=== PATIENT | male | born 1985 | race Hispanic/Latino ===

== ENCOUNTER 2017-09-24 05:25 | Emergency (ER) | payer SELFPAY ==
[2017-09-24 05:59] LABS: Absolute Lymphocytes (CBC) 4.2 K/uL (0.7-4.9); Absolute Monocytes 0.5 K/uL (0.1-1.3); Absolute Neutrophil 6.4 K/uL (1.8-8.0); Basophils % 1.1 % (0-1.3); Eosinophils % 3.1 % (0-4.4); MCV 83.5 fL (80-100); MPV 8.2 fL (7.6-11.3); Monocytes % 4.7 % (3.3-12.3); RBC Red Blood Cell Count 6.11 M/uL (4.33-5.43)
[2017-09-24] MEDS ORDERED: HYDRALAZINE HCL 20 MG/ML VIAL ONE (06:02)
[2017-09-24 06:09] LABS: Protime INR 1.17
[2017-09-24 06:11] LABS: Bicarbonate 24 mEq/L (21-31); Glucose Level 109 mg/dL (65-120); Sodium Level 137 mEq/L (135-145)
[2017-09-24 06:17] LABS: ALT/SGPT 158 IU/L (10-60); AST/SGOT 94 IU/L (10-42); Albumin 4.9 g/dL (3.2-5.5); Alkaline Phosphatase 72 IU/L (42-121); BUN Blood Urea Nitrogen 14 mg/dL (6-20); Bilirubin Direct 0.1 mg/dL (0-0.2); Creatine Phosphokinase 90 IU/L (22-269); Magnesium 2.3 mg/dL (1.8-2.5); Protein, Total 8.7 g/dL (6.0-8.3)
[2017-09-24 06:19] LABS: CKMB Creatine Kinase MB 0.7 ng/ml (0.3-4.0)
--- NOTE | 2017-09-24 07:15 | EDPHYS ---
Physician Documentation [facility] Name: Marko Vick Age: 31 yrs Sex: Male : 1985 Arrival Date: 09/24/2017 Time: 05:27 Bed 16 Private MD: ED Physician Dashawn Butts Historical: - Allergies: 09/24 05:44 No Known Allergies; fc - Home Meds: 05:44 lisinopril-hydrochlorothiazide 10-12.5 mg oral tab 1 tab once daily [Active]; fc metoprolol tartrate 25 mg Oral tab 1 tab 2 times per day [Active]; - PMHx: 05:44 Hypertension; fc - PSHx: 05:44 None; fc - Immunization history:: Last tetanus immunization: unknown. - Social history:: Smoking status: Patient uses tobacco products, smokes one-half pack cigarettes per day, Patient/guardian denies using alcohol, street drugs. Vital Signs: 05:30 BP 155 / 114; Pulse 82; Resp 18; Temp 97.8(O); Pulse Ox 98% on R/A; Weight 102.06 kg fc (R); Height 5 ft. 9 in. (175.26 cm) (R); Pain 1/10; 06:05 BP 136 / 103; Pulse 92; Resp 20; Pulse Ox 97% ; bs1 06:19 BP 123 / 84; Pulse 96; Resp 17; Pulse Ox 98% on R/A; bs1 07:17 BP 134 / 85; Pulse 91; Resp 20; Pulse Ox 98% on R/A; Pain 0/10; rb1 05:30 Body Mass Index 33.23 (102.06 kg, 175.26 cm) MDM: 05:40 Patient medically screened. 09/24 05:40 Order name: Basic Metabolic Panel 09/24 05:40 Order name: BNP 09/24 05:40 Order name: CBC with Diff 09/24 05:40 Order name: Ckmb 09/24 05:40 Order name: CPK 09/24 05:40 Order name: LFT's 09/24 05:40 Order name: Magnesium 09/24 05:40 Order name: PT-INR 09/24 05:40 Order name: Ptt, Activated 09/24 05:40 Order name: Troponin (emerg Dept Use Only) [facility] 09/24 05:40 Order name: EKG; Complete Time: 05:41 09/24 05:40 Order name: Cardiac monitoring; Complete Time: 06:00 09/24 07:29 Order name: Urine Dipstick--Ancillary (enter results) 09/24 05:40 Order name: EKG - Nurse/Tech; Complete Time: 06:00 09/24 05:40 Order name: IV Saline Lock; Complete Time: 06:00 09/24 05:40 Order name: Labs collected and sent; Complete Time: 06:00 09/24 05:40 Order name: O2 Per Protocol; Complete Time: 06:00 09/24 05:40 Order name: O2 Sat Monitoring; Complete Time: 06:00 Administered Medications: 06:04 Drug: hydrALAZINE 10 mg Route: IV; Rate: bolus; Site: left femoral; bs1 Disposition: 09/24/17 07:14 Discharged to Home. Impression: Hypertension secondary to other renal disorders, Chest pain, unspecified. - Condition is Stable. - Discharge Instructions: Hypertension, Nonspecific Chest Pain, [id number], Hypertension, [id number]. - Medication Reconciliation Form, Thank You Letter, Antibiotic Education, Prescription Opioid Use form. - Follow up: Dashawn Butts MD; When: Upon discharge from the Emergency Department; Reason: Recheck today's complaints, Re-evaluation by your physician. - Problem is new. - Symptoms have improved. Addendum: 10/14/2017 06:49 Addendum: Pt is a 31 year old male that presents with CP that radiates to his left arm. t w4 He states that he was seen for this same pain twice at [facility] last week and evaluated. Pt deneis SOB, fever chills. Addendum: ROS: Constitutional: negative for fever chills, malaise ENT: negative for sore throat, ear pain CV: positive for CP, negative for SOB, palpitations Resp: negative for SOB, cough SIU, Abdomen: negative for nausea vomiting, abdominal pain. all other systems negative except as marked. Addendum: PE: General: well developed, well nourished male in NAD HEENT: PERRLA, EOMI Neck: supple, no meningeal signs CV: RRR, nl S1,S2 no rubs gallops Resp: CTAB, normal BS Abdomen: soft ND/ND nl BS Ext: nontender, no edema Neuro: alert and oriented times three, CN grossly intact, moves all fours. Addendum: ED course: pt received Hydralazine with good BP control. will discharge to home with outpatient followup . Signatures: Dispatcher [employer] EDMS Amanda Fuentes, RN RN Galilea Lin, RN RN rb1 Carisa Hood RN RN bs1 Dashawn Butts MD MD tw4 Corrections: (The following items were deleted from the chart) 09/24 07:14 07:14 09/24/2017 07:14 Discharged to Home. Impression: Hypertension secondary to other tw4 renal disorders. Condition is Stable. Forms are Medication Reconciliation Form, Thank You Letter, Antibiotic Education, Prescription Opioid Use. Follow up: Dashawn Butts; When: Upon discharge from the Emergency Department; Reason: Recheck today's complaints, Re-evaluation by your physician. Problem is new. Symptoms have improved. tw4 07:42 07:14 09/24/2017 07:14 Discharged to Home. Impression: Hypertension secondary to other rb1 renal disorders; Chest pain, unspecified. Condition is Stable. Discharge Instructions: Hypertension, Hypertension, [id number]. Forms are Medication Reconciliation Form, Thank You Letter, Antibiotic Education, Prescription Opioid Use. Follow up: Dashawn Butts; When: Upon discharge from the Emergency Department; Reason: Recheck today's complaints, Re-evaluation by your physician. Problem is new. Symptoms have improved. tw4
--- NOTE | 2017-09-24 07:15 | ER ---
Nurse's Notes [facility] Name: Marko Vick Age: 31 yrs Sex: Male : 1985 Arrival Date: 09/24/2017 Time: 05:27 Bed 16 Private MD: Diagnosis: Hypertension secondary to other renal disorders;Chest pain, unspecified Presentation: 09/24 05:30 Presenting complaint: Patient states: that he started having chest pain that radiates fc to left arm at 0300 this am. Having shortness of breath but denies any nausea or vomiting. Did have the same issue last and was admitted to [facility] and discharged on Saturday then was seen again there on Saturday. Both times he was told that it was his HTN. Transition of care: patient was not received from another setting of care. Onset of symptoms was September 24, 2017 at 03:00. Initial Sepsis Screen: Does the patient meet any 2 criteria? No. Patient's initial sepsis screen is negative. Does the patient have a suspected source of infection? No. Patient's initial sepsis screen is negative. Care prior to arrival: None. 05:30 Method Of Arrival: Ambulatory 05:30 Acuity: DARRYL 3 fc Historical: - Allergies: 05:44 No Known Allergies; fc - Home Meds: 05:44 lisinopril-hydrochlorothiazide 10-12.5 mg oral tab 1 tab once daily [Active]; fc metoprolol tartrate 25 mg Oral tab 1 tab 2 times per day [Active]; - PMHx: 05:44 Hypertension; fc - PSHx: 05:44 None; fc - Immunization history:: Last tetanus immunization: unknown. - Social history:: Smoking status: Patient uses tobacco products, smokes one-half pack cigarettes per day, Patient/guardian denies using alcohol, street drugs. Screenin:30 Abuse screen: Denies threats or abuse. Nutritional screening: No deficits noted. fc Tuberculosis screening: No symptoms or risk factors identified. Fall Risk None identified. Assessment: 05:56 General: Appears in no apparent distress. uncomfortable, Behavior is cooperative, bs1 anxious. Pain: Complains of pain in chest Pain radiates to left arm Pain began gradually. Neuro: Level of Consciousness is awake, alert, obeys commands, Oriented to person, place, time, situation, Appropriate for age Spot Welder Line are equal bilaterally Moves all extremities. Gait is steady. Cardiovascular: Reports chest pain, shortness of breath, Denies nausea, palpitations, vomiting, Heart tones S1 S2 present Capillary refill < 3 seconds Patient's skin is warm and dry. Respiratory: Reports shortness of breath at rest on exertion Airway is patent Trachea midline Respiratory effort is even, unlabored, Respiratory pattern is regular, symmetrical, Breath sounds are clear bilaterally. GI: Abdomen is round non-distended, Bowel sounds present X 4 quads. : No deficits noted. No signs and/or symptoms were reported regarding the genitourinary system. EENT: No deficits noted. No signs and/or symptoms were reported regarding the EENT system. Derm: Skin is intact, Skin is pink, warm \T\ dry. Musculoskeletal: Circulation, motion, and sensation intact. Capillary refill < 3 seconds, Range of motion: intact in all extremities. 06:48 Reassessment: Patient appears in no apparent distress at this time. Patient and/or bs1 family updated on plan of care and expected duration. Pain level reassessed. Patient is alert, oriented x 3, equal unlabored respirations, skin warm/dry/pink. Patients blood pressure decreased after hydralazine 10mg IV. 06:58 Reassessment: Report given to TERRI Calero. bs1 07:00 General: Appears in no apparent distress. comfortable. Pain: Denies pain. Neuro: Level rb1 of Consciousness is awake, alert, obeys commands, Oriented to person, place, time, situation. Cardiovascular: Capillary refill < 3 seconds is brisk in bilateral fingers. Respiratory: Airway is patent Respiratory effort is even, unlabored, Respiratory pattern is regular, symmetrical. Derm: Skin is pink, warm \T\ dry. Vital Signs: 05:30 BP 155 / 114; Pulse 82; Resp 18; Temp 97.8(O); Pulse Ox 98% on R/A; Weight 102.06 kg fc (R); Height 5 ft. 9 in. (175.26 cm) (R); Pain 05/22; 06:05 BP 136 / 103; Pulse 92; Resp 20; Pulse Ox 97% ; bs1 06:19 BP 123 / 84; Pulse 96; Resp 17; Pulse Ox 98% on R/A; bs1 07:17 BP 134 / 85; Pulse 91; Resp 20; Pulse Ox 98% on R/A; Pain 0/10; rb1 05:30 Body Mass Index 33.23 (102.06 kg, 175.26 cm) ED Course: 05:27 Patient arrived in ED. es 05:30 Arm band placed on Patient placed in an exam room, on a stretcher, on environmental monitoring technician, fc on pulse oximetry. 05:30 Patient has correct armband on for positive identification. Placed in gown. Bed in low fc position. Call light in reach. Adult w/ patient. monitoring and evaluation advisor on. Pulse ox on. NIBP on. 05:30 No provider procedures requiring assistance completed. fc 05:39 Dashawn Butst MD is Attending Physician. tw4 05:42 Triage completed. fc 05:45 Inserted saline lock: 22 gauge in left forearm, using aseptic technique. Patient bs1 maintains SpO2 saturation greater than 95% on room air. 05:55 Carisa Hood RN is Primary Nurse. bs1 07:13 Dashawn Butts MD is Referral Physician. tw4 07:30 No provider procedures requiring assistance completed. IV discontinued, intact, rb1 bleeding controlled, No redness/swelling at site. Pressure dressing applied. Administered Medications: 06:04 Drug: hydrALAZINE 10 mg Route: IV; Rate: bolus; Site: left femoral; bs1 Outcome: 07:14 Discharge ordered by . tw4 07:30 Patient left the ED. rb1 07:30 Discharged to home ambulatory, with family. rb1 07:30 Condition: stable 07:30 Discharge instructions given to patient, Instructed on discharge instructions, follow up and referral plans. Demonstrated understanding of instructions, follow-up care, Prescriptions given X none Signatures: Adri Damico Felicia RN RN Galilea Lin RN RN rb1 Carisa Hood RN RN bs1 Dashawn Butts MD MD tw4 Corrections: (The following items were deleted from the chart) 06:48 05:56 Respiratory: Airway is patent Trachea midline Respiratory effort is even, bs1 unlabored, Respiratory pattern is regular, symmetrical, Breath sounds are clear bilaterally. bs1 08:00 07:42 Patient left the ED. rb1 rb1
[2017-09-24 08:07] LABS: Urine Blood NEGATIVE (NEG); Urine Glucose NEGATIVE (NEG); Urine Protein 1+ (NEG); Urine Specific Gravity >1.030 (1.005-1.030)
--- NOTE | 2017-09-24 08:44 | EKG ---
Test Date: 2017-09-24 Test Time: 05:40:13 Vascular Technologist: ROMEO MEASUREMENT RESULTS: Intervals: Rate: 83 MS: 160 QRSD: 96 QT: 348 QTc: 408 Sledge: P: 43 MS: 160 QRS: 35 T: -22 INTERPRETIVE STATEMENTS: Normal sinus rhythm Minimal voltage criteria for LVH, may be normal variant T wave abnormality, consider inferior ischemia Abnormal ECG No previous ECG available for comparison Electronically Signed On 09-24-17 08:43:35 CDT by Codey Rodriguez
== END 2017-09-24 07:42 | disposition home or self-care (01) ==
LOC: ER 05:25
DX: I15.1 Hypertension secondary to other renal disorders (principal); F17.210 Nicotine dependence, cigarettes, uncomplicated
CPT/HCPCS: 36415; 80048; 80076; 81003; 82550; 82553; 83735; 83880; 84484; 85025; 85610; 85730; 93005; 96374; 99285; J0360